=== PATIENT | male | born 1970 | race African-American/Black ===

== ENCOUNTER → 2021-01-04 | Outpatient (CLI) | payer OTHER ==
--- NOTE | 2021-01-04 10:45 | RAD ---
Exam performed: 2 views of the chest and x-ray lumbar spine. Indication: Reason: / Spl. Instructions: / History: Spinal stenosis, chest pain Date of Service: 01/04/2021 10:18 AM. Comparison : None available Findings: AP and lateral view of the lumbar spine demonstrates 5 nonrib-bearing vertebral bodies. Sagittal alig nment is preserved. The vertebral body heights are maintained. There is no hugh or retrolisthesis. No compression fracture. There is mild narrowing of L5-S1 disc space, the remainder intravertebral d isc spaces are preserved. Mild anterior osteophytes are seen at L4-5 level. There are facet hypertrop hic changes at L4-5 and L5-S1. Nonspecific bowel gas pattern seen. PA and lateral radiographs of the chest reveal a normal cardiomediastinal contour. The lungs are cierra r. No pleural fluid is seen. The visualized osseous structures are unremarkable. Impression: Spondylotic changes and degenerative disc disease at L5-S1. No acute cardiopulmonary process seen. Electronically signed by: Emeli Rueda MD (01/04/2021 10:43 AM) [facility]
== END ==
LOC: RAD 09:43
PROVIDERS: ATTEND Anesthesiology Pain Medicine
DX: Z02.71 Encounter for disability determination (principal); M47.817 Spondylosis without myelopathy or radiculopathy, lumbosacral region; M51.37 Other intervertebral disc degeneration, lumbosacral region; M48.07 Spinal stenosis, lumbosacral region; M25.78 Osteophyte, vertebrae; I51.9 Heart disease, unspecified
CPT/HCPCS: 71046; 72100